=== PATIENT | female | born 1970 | race Caucasian/White ===

== ENCOUNTER 2025-01-14 20:12 | Emergency (ER) | payer BC, SELFPAY ==
[2025-01-14] VITALS (15 sets, daily range): BP systolic 114–153; BP diastolic 56–82; BMI 23.1
[2025-01-14] MEDS: DILAUDID 0.5 MG IV (21:21)
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
[2025-01-14] MEDS: DIPRIVAN 190 MG IV (23:48)
[2025-01-14] MEDS: TORADOL 15 MG IV (23:56)
== END 2025-01-15 00:15 | disposition home or self-care (01) ==
LOC: EMR 20:12
PROVIDERS: EMERGENCY PHYSICIAN Emergency Medicine; FAMILY PHYSICIAN Family Medicine
DX: S82.842A Displaced bimalleolar fracture of left lower leg, initial encounter for closed fracture (principal); S93.05XA Dislocation of left ankle joint, initial encounter; V18.0XXA Pedal cycle driver injured in noncollision transport accident in nontraffic accident, initial encounter; Y93.55 Activity, bike riding
CPT/HCPCS: 27810; 99152; 96374; 96375; 99285; 73564; 73600; 73610

== ENCOUNTER → 2025-06-23 09:45 | Outpatient (REF) | payer BC, SELFPAY ==
[2025-06-23 11:19] LABS: Hematocrit 40.3 % (37.0-47.0); Hemoglobin 13.1 g/dL (12.0-16.0); Mean Corp Hgb Conc. 32.5 g/dL (33.0-37.0); Mean Corpuscular Volume 84.8 fL (81.0-99.0); Nucleated Red Blood Cells % 0 %; Platelet Count 335 10^3/uL (130-400); Red Cell Dist. Width 12.3 % (11.5-14.5)
[2025-06-23 11:56] LABS: Blood Urea Nitrogen 15 mg/dl (7-17); Calcium 9.3 mg/dl (8.4-10.2); Carbon Dioxide 30 mmol/L (22-30); Chloride 100 mmol/L (98-107); Glucose 85 mg/dl (70-99); Potassium 4.2 mmol/L (3.5-5.1); Sodium 136 mmol/L (135-145); eGFR > 60.00
== END ==
LOC: HWLAB 09:45
PROVIDERS: ATTENDING PHYSICIAN Student in an Organized Health Care Education/Training Program; FAMILY PHYSICIAN Family Medicine
DX: Z01.818 Encounter for other preprocedural examination (principal)
CPT/HCPCS: 36415; 80048; 85025